=== PATIENT | male | born 1965 | race Caucasian/White ===

== ENCOUNTER 2017-10-11 06:18 | Emergency (ER) | payer OTHER ==
--- NOTE | 2017-10-11 07:51 | ER ---
Nurse's Notes [facility] Name: Pete Granger Age: 52 yrs Sex: Male : 1965 Arrival Date: 10/11/2017 Time: 06:18 Bed 15 Private MD: Werner No E Diagnosis: Strain of unspecified muscle and tendon at ankle and foot level, left foot;Fracture of fifth metatarsal bone Presentation: 10/11 06:26 Presenting complaint: Patient states: he woke up this morning with L foot pain. Denies aa1 injury. CMS intact. Transition of care: patient was not received from another setting of care. Onset of symptoms was October 11, 2017. Risk Assessment: Do you want to hurt yourself or someone else? Patient reports no desire to harm self or others. Initial Sepsis Screen: Does the patient meet any 2 criteria? No. Patient's initial sepsis screen is negative. Does the patient have a suspected source of infection? No. Patient's initial sepsis screen is negative. Care prior to arrival: None. 06:26 Method Of Arrival: Ambulatory aa1 06:26 Acuity: SHAHZAD 4 aa1 Historical: - Allergies: 06:27 No Known Allergies; aa1 - Home Meds: 06:27 None [Active]; aa1 - PMHx: 06:27 None; aa1 - PSHx: 06:27 Knee surgery; jaw sx; aa1 - Immunization history:: Adult Immunizations up to date. - Social history:: Smoking status: Patient uses tobacco products, denies chronic smoking, but will smoke occasionally. - Ebola Screening: : No symptoms or risks identified at this time. - Family history:: not pertinent. - Hospitalizations: : No recent hospitalization is reported. Screenin:28 Abuse screen: Denies threats or abuse. Denies injuries from another. Nutritional aa1 screening: No deficits noted. Tuberculosis screening: No symptoms or risk factors identified. Fall Risk None identified. Assessment: 06:28 General: Appears in no apparent distress. comfortable, Behavior is calm, cooperative, aa1 appropriate for age. Pain: Complains of pain in left foot Aggravated by weight bearing. Neuro: Level of Consciousness is awake, alert, obeys commands, Oriented to person, place, time, situation, Gait is steady. Respiratory: Airway is patent Respiratory effort is even, unlabored, Respiratory pattern is regular, symmetrical. GI: No signs and/or symptoms were reported involving the gastrointestinal system. : No signs and/or symptoms were reported regarding the genitourinary system. EENT: No signs and/or symptoms were reported regarding the EENT system. Derm: Skin is intact, is healthy with good turgor, Skin is pink, warm \T\ dry. Musculoskeletal: Circulation, motion, and sensation intact. Capillary refill < 3 seconds, Range of motion: intact in all extremities. Vital Signs: 06:27 BP 153 / 83; Pulse 74; Resp 16; Temp 97.9; Pulse Ox 98% on R/A; Weight 117.93 kg; aa1 Height 5 ft. 11 in. (180.34 cm); Pain 2/10; 06:27 Body Mass Index 36.26 (117.93 kg, 180.34 cm) aa1 ED Course: 06:18 Patient arrived in ED. ds1 06:18 Werner No MD is Private Physician. ds1 06:27 Triage completed. aa1 06:27 Arm band placed on right wrist. Patient placed in an exam room, on a stretcher. aa1 06:28 Patient has correct armband on for positive identification. Bed in low position. Call aa1 light in reach. Pulse ox on. NIBP on. 06:42 Pam Juan FNP is PHCP. kav 06:42 Arnaldo Garcia MD is Attending Physician. kav 07:03 X-ray completed. Portable x-ray completed in exam room. Patient tolerated procedure jb2 well. 07:03 Naif Stewart, RIC is Primary Nurse. hj 07:04 Foot Left 3 View XRAY: left outer outer distal aspect of left foot - no injury In EDMS Process Unspecified. 07:50 Werner No MD is Referral Physician. kav 07:55 No provider procedures requiring assistance completed. Patient did not have IV access hj during this emergency room visit. Administered Medications: No medications were administered Outcome: 07:50 Discharge ordered by . kav 07:55 Discharged to home ambulatory. hj 07:55 Condition: stable 07:55 Discharge instructions given to patient, Instructed on discharge instructions, follow up and referral plans. Demonstrated understanding of instructions, follow-up care. 07:55 Patient left the ED. hj Signatures: Dispatcher [employer] EDMS Soledad Hernandez, RIC RN aa1 Pam Juan, DISTRIBUTOR SALES CONSULTANT DISTRIBUTOR SALES CONSULTANT Jamie Ruggiero2 Jessica Garcia ds1 Naif Stewart, RN RN hj
--- NOTE | 2017-10-11 07:51 | EDPHYS ---
Physician Documentation [facility] Name: Pete Granger Age: 52 yrs Sex: Male : 1965 Arrival Date: 10/11/2017 Time: 06:18 Bed 15 Private MD: Werner No E ED Physician Arnaldo Garcia HPI: 10/11 06:42 This 52 yrs old Male presents to ER via Ambulatory with complaints of L Foot kav Pain. 06:48 The patient presents with pain, that is acute. The complaints affect the left foot, kav dorsum of left foot. Context: The problem was sustained at an unknown location. Onset: The symptoms/episode began/occurred acutely. Modifying factors: The symptoms are alleviated by nothing, the symptoms are aggravated by movement. Associated signs and symptoms: The patient has no apparent associated signs or symptoms. Severity of symptoms: At their worst the symptoms were mild, just prior to arrival, yesterday. The patient has not recently seen a physician. Patient [place] walking beach "...all day yesterday without any shoes on". Historical: - Allergies: 06:27 No Known Allergies; aa1 - Home Meds: 06:27 None [Active]; aa1 - PMHx: 06:27 None; aa1 - PSHx: 06:27 Knee surgery; jaw sx; aa1 - Immunization history:: Adult Immunizations up to date. - Social history:: Smoking status: Patient uses tobacco products, denies chronic smoking, but will smoke occasionally. - Ebola Screening: : No symptoms or risks identified at this time. - Family history:: not pertinent. - Hospitalizations: : No recent hospitalization is reported. ROS: 06:48 Constitutional: Negative for fever, chills, and weight loss, Eyes: Negative for injury, kav pain, redness, and discharge, ENT: Negative for injury, pain, and discharge, Neck: Negative for injury, pain, and swelling, Cardiovascular: Negative for chest pain, palpitations, and edema, Respiratory: Negative for shortness of breath, cough, wheezing, and pleuritic chest pain, Abdomen/GI: Negative for abdominal pain, nausea, vomiting, diarrhea, and constipation, Back: Negative for injury and pain, : Negative for injury, bleeding, discharge, and swelling, Skin: Negative for injury, rash, and discoloration, Neuro: Negative for headache, weakness, numbness, tingling, and seizure, Psych: Negative for depression, anxiety, suicide ideation, homicidal ideation, and hallucinations, Allergy/Immunology: Negative for hives, rash, and allergies, Endocrine: Negative for neck swelling, polydipsia, polyuria, polyphagia, and marked weight changes, Hematologic/Lymphatic: Negative for swollen nodes, abnormal bleeding, and unusual bruising. 06:48 MS/extremity: Positive for pain, of the lateral side of left foot and dorsum of left foot. Exam: 06:48 Constitutional: This is a well developed, well nourished patient who is awake, alert, kav and in no acute distress. Head/Face: Normocephalic, atraumatic. Eyes: Pupils equal round and reactive to light, extra-ocular motions intact. Lids and lashes normal. Conjunctiva and sclera are non-icteric and not injected. Cornea within normal limits. Periorbital areas with no swelling, redness, or edema. ENT: Nares patent. No nasal discharge, no septal abnormalities noted. Tympanic membranes are normal and external auditory canals are clear. Oropharynx with no redness, swelling, or masses, exudates, or evidence of obstruction, uvula midline. Mucous membranes moist. Neck: Trachea midline, no thyromegaly or masses palpated, and no cervical lymphadenopathy. Supple, full range of motion without nuchal rigidity, or vertebral point tenderness. No Meningismus. Chest/axilla: Normal chest wall appearance and motion. Nontender with no deformity. No lesions are appreciated. Cardiovascular: Regular rate and rhythm with a normal S1 and S2. No gallops, murmurs, or rubs. Normal PMI, no JVD. No pulse deficits. Respiratory: Lungs have equal breath sounds bilaterally, clear to auscultation and percussion. No rales, rhonchi or wheezes noted. No increased work of breathing, no retractions or nasal flaring. Abdomen/GI: Soft, non-tender, with normal bowel sounds. No distension or tympany. No guarding or rebound. No evidence of tenderness throughout. Back: No spinal tenderness. No costovertebral tenderness. Full range of motion. Skin: Warm, dry with normal turgor. Normal color with no rashes, no lesions, and no evidence of cellulitis. Neuro: Awake and alert, GCS 15, oriented to person, place, time, and situation. Cranial nerves II-XII grossly intact. Motor strength 5/5 in all extremities. Sensory grossly intact. Cerebellar exam normal. Normal gait. Psych: Awake, alert, with orientation to person, place and time. Behavior, mood, and affect are within normal limits. 06:48 Musculoskeletal/extremity: Extremities: noted in the lateral side of left foot and dorsum of left foot: ROM: no acute changes, Circulation is intact in all extremities. Pulses: noted to be 2+ in the left posterior tibial artery and left dorsalis pedis artery, Sensation intact. Compartment Syndrome exam of affected extremity: is normal. no pain, no numbness, no tingling, no sensation deficit, no palor, no weak pulses, Joints: the left ankle displays Weight bearing: able to fully bear weight, without difficulty. Vital Signs: 06:27 BP 153 / 83; Pulse 74; Resp 16; Temp 97.9; Pulse Ox 98% on R/A; Weight 117.93 kg; aa1 Height 5 ft. 11 in. (180.34 cm); Pain 2/10; 06:27 Body Mass Index 36.26 (117.93 kg, 180.34 cm) aa1 MDM: 06:42 Medical screening is not applicable. kav 10/11 06:47 Order name: Foot Left 3 View XRAY: left outer outer distal aspect of left foot - no kav injury 10/11 07:51 Interpretation: Abnormal. kav Administered Medications: No medications were administered Disposition: 10/11/17 07:50 Discharged to Home. Impression: Strain of unspecified muscle and tendon at ankle and foot level, left foot, Fracture of fifth metatarsal bone. - Condition is Stable. - Discharge Instructions: Metatarsal Fracture, Undisplaced, Repetitive Strain Injuries. - Medication Reconciliation Form, Thank You Letter, Antibiotic Education, Prescription Opioid Use form. - Follow up: Werner No; When: 5 - 6 days; Reason: Recheck today's complaints, Continuance of care, Re-evaluation by your physician. - Problem is new. - Symptoms have improved. - Notes: patient refused splinting and ortho shoe advised to wear a supportive shoe for the next 2 weeks and avoid flip-flops otc motrin as directed and as needed Addendum: 10/13/2017 07:00 Co-signature as Attending Physician, Arnaldo Garcia MD. r n Signatures: Dispatcher [employer] EDMS Soledad Hernandez RN RN aa1 Pam Juan, ELECTRICAL CONTACTS ADJUSTER ELECTRICAL CONTACTS ADJUSTER Arnaldo Wallace MD MD rn Joaquin, Henry, RN RN hj Corrections: (The following items were deleted from the chart) 10/11 07:55 07:50 10/11/2017 07:50 Discharged to Home. Impression: Strain of unspecified muscle and hj tendon at ankle and foot level, left foot; Fracture of fifth metatarsal bone. Condition is Stable. Discharge Instructions: Repetitive Strain Injuries, Metatarsal Fracture, Undisplaced. Forms are Medication Reconciliation Form, Thank You Letter, Antibiotic Education, Prescription Opioid Use. Follow up: Werner No; When: 5 - 6 days; Reason: Recheck today's complaints, Continuance of care, Re-evaluation by your physician. Problem is new. Symptoms have improved. kav
--- NOTE | 2017-10-11 08:32 | RAD REPORT ---
EXAM DESCRIPTION: RAD - Foot Left 3 View - 10/11/2017 7:03 am CLINICAL HISTORY: Left Foot pain FINDINGS: No fracture or dislocation is seen. Large calcaneal spur is present. Soft tissue swelling involves the lateralized
== END 2017-10-11 07:55 | disposition home or self-care (01) ==
LOC: ER 06:18
DX: S92.352A Displaced fracture of fifth metatarsal bone, left foot, initial encounter for closed fracture (principal); S96.912A Strain of unspecified muscle and tendon at ankle and foot level, left foot, initial encounter; F17.200 Nicotine dependence, unspecified, uncomplicated; Y93.01 Activity, walking, marching and hiking; Y93.89 Activity, other specified; Y92.832 Beach as the place of occurrence of the external cause; Y99.8 Other external cause status
CPT/HCPCS: 99283

== ENCOUNTER 2020-08-28 16:35 | Emergency (ER) | payer OTHER ==
[2020-08-28] MEDS ORDERED: KETOROLAC 30 MG/ML INJ ONE (17:38)
--- NOTE | 2020-08-28 17:56 | RAD REPORT ---
EXAM DESCRIPTION: CT - Pelvis Wo Cont - 08/28/2020 5:28 pm CLINICAL HISTORY: Pelvic pain. Left hip radiculopathy COMPARISON: None. TECHNIQUE: Computed axial tomography of the pelvis was obtained. Coronal and sagittal reconstruction performed All CT scans are performed using dose optimization technique as appropriate and may include automated exposure control or mA/KV adjustment according to patient size. FINDINGS: No fracture or dislocation. A significant left hip joint effusion is not present. 25 millimeter fluid collection abuts superolateral aspect the left acetabulum. It equivocally contain s an air bubble Moderate osteoarthritis involves left consisting of joint space narrowing, osteophytes vacuum phenome na. Subchondral cyst is also seen. The prostate gland is mildly enlarged. Marked narrowing involves the L5-S1 disc. Slight posterior subluxation L5 on S1. Osteophytes and vacu um phenomena are present. IMPRESSION: Mild to moderate osteoarthritis left hip 25 millimeter fluid collection abuts superolateral aspect the left acetabulum. It equivocally contain s an air bubble. This may indicate an infected bursitis and should be correlated clinically
[2020-08-28 19:16] LABS: Absolute Lymphocytes (CBC) 2.8 K/uL (0.7-4.9); Basophils % 0.6 % (0-1.3); Hematocrit 40.5 % (39.6-49.0); Lymphocytes % 33.1 % (15.3-44.8); MPV 8.6 fL (7.6-11.3); RBC Red Blood Cell Count 4.49 M/uL (4.33-5.43)
[2020-08-28 19:25] LABS: BUN Blood Urea Nitrogen 16 mg/dL (7-18); Bicarbonate 26 mmol/L (21-32); C-Reactive Protein 3.46 mg/L (<3.00); Glucose Level 106 mg/dL (74-106); Potassium 3.6 mmol/L (3.5-5.1); Sodium Level 139 mmol/L (136-145)
--- NOTE | 2020-08-28 20:27 | ER ---
Nurse's Notes [facility] Name: Tex Granger Age: 55 yrs Sex: Male : 1965 Arrival Date: 08/28/2020 Time: 16:36 Bed 15 Private MD: Werner No E Diagnosis: Pain in left hip Presentation: 08/28 16:40 Chief complaint: Patient states: "we are in the process of building a house and through jd3 all the doings of today I am having pain deep in my left hip that comes down to my left knee.". Coronavirus screen: At this time, the client does not indicate any symptoms associated with coronavirus-19. Ebola Screen: Patient negative for fever greater than or equal to 101.5 degrees Fahrenheit, and additional compatible Ebola Virus Disease symptoms. Initial Sepsis Screen: Does the patient meet any 2 criteria? No. Patient's initial sepsis screen is negative. Does the patient have a suspected source of infection? No. Patient's initial sepsis screen is negative. Risk Assessment: Do you want to hurt yourself or someone else? Patient reports no desire to harm self or others. Onset of symptoms was August 28, 2020. 16:40 Method Of Arrival: Ambulatory jd3 16:40 Acuity: SHAHZAD 3 jd3 Historical: - Allergies: 16:42 No Known Allergies; jd3 - Home Meds: 16:42 None [Active]; jd3 - PMHx: 16:42 None; jd3 - PSHx: 16:42 Knee surgery; jaw sx; jd3 - Immunization history:: Adult Immunizations up to date. - Social history:: Smoking status: Patient reports the use of cigarette tobacco products, denies chronic smoking, but will smoke occasionally. Screenin:11 Abuse screen: Denies threats or abuse. Denies injuries from another. Nutritional ca1 screening: No deficits noted. Tuberculosis screening: No symptoms or risk factors identified. Fall Risk None identified. Assessment: 17:11 General: Appears in no apparent distress. comfortable, Behavior is calm, cooperative, ca1 appropriate for age. Pain: Complains of pain in left femoral area and left inguinal area Pain radiates to left leg Pain currently is 8 out of 10 on a pain scale. Pain began 2-3 days ago. Aggravated by weight bearing. Neuro: Level of Consciousness is awake, alert, obeys commands, Oriented to person, place, time, situation. Derm: Skin is intact, is healthy with good turgor, Skin is pink, warm \\T\\ dry. Musculoskeletal: Circulation, motion, and sensation intact. Capillary refill < 3 seconds. 18:00 Reassessment: Patient appears in no apparent distress at this time. Patient and/or ca1 family updated on plan of care and expected duration. Pain level reassessed. Patient is alert, oriented x 3, equal unlabored respirations, skin warm/dry/pink. 19:02 Reassessment: Patient appears in no apparent distress at this time. Patient and/or ca1 family updated on plan of care and expected duration. Pain level reassessed. Patient is alert, oriented x 3, equal unlabored respirations, skin warm/dry/pink. 19:20 Reassessment: Patient and/or family updated on plan of care and expected duration. Pain cr4 level reassessed. Patient is alert, oriented x 3, equal unlabored respirations, skin warm/dry/pink. Patient states feeling better. Vital Signs: 16:42 BP 147 / 84; Pulse 88; Resp 17 S; Temp 97.9(TE); Pulse Ox 100% on R/A; Weight 117.93 kg jd3 (R); Height 5 ft. 11 in. (180.34 cm) (R); Pain 8/10; 19:02 BP 134 / 76; Pulse 81; Resp 16 S; Pulse Ox 100% on R/A; ca1 20:30 BP 135 / 63; Pulse 55; Resp 18; Temp 98.6; Pulse Ox 99% ; Pain 3/10; cr4 16:42 Body Mass Index 36.26 (117.93 kg, 180.34 cm) jd3 ED Course: 16:36 Patient arrived in ED. am2 16:36 Werner No MD is Private Physician. am2 16:41 Triage completed. jd3 16:43 Arm band placed on. jd3 17:01 [facility]C [facility] kb 17:01 Jona Mathews MD is Attending Physician. kb 17:11 Lucia Larson, RIC is Primary Nurse. ca1 17:11 Patient has correct armband on for positive identification. Bed in low position. Call ca1 light in reach. Side rails up X 1. Pulse ox on. NIBP on. 17:28 CT Pelvis wo Cont In Process Unspecified. EDMS 19:00 Initial lab(s) drawn, by me, sent to lab. Inserted saline lock: 20 gauge in right ca1 antecubital area, using aseptic technique. Blood collected. 19:20 No provider procedures requiring assistance completed. cr4 20:27 Dung Anderson MD is Referral Physician. kb 20:49 IV discontinued, intact, bleeding controlled. cr4 Administered Medications: 17:22 Drug: TORadol (ketorolac) 60 mg Route: IM; Site: left gluteus; ca1 18:00 Follow up: Response: No adverse reaction; Pain is decreased ca1 20:48 Follow up: Response: No adverse reaction; Pain is decreased cr4 Outcome: 20:27 Discharge ordered by . kb 20:49 Discharged to home ambulatory. cr4 20:49 Condition: good 20:49 Discharge instructions given to patient, Instructed on discharge instructions, follow up and referral plans. medication usage, Demonstrated understanding of instructions, follow-up care, medications, Prescriptions given X 2. 20:52 Patient left the ED. cr4 Signatures: Dispatcher [employer] EDPR Meri Garza, ALARM FIELD TECHNICIAN-C ALARM FIELD TECHNICIAN-Judit Pillai, RN RN cr4 Trina Huff am2 Tip Sorto RN RN jd3 Lucia Larson RN RN ca1 Corrections: (The following items were deleted from the chart) 16:43 16:42 Pulse 88bpm; Resp 17bpm; Spontaneous; Pulse Ox 100% RA; Temp 97.9F Temporal; jd3 117.93 kg Reported; Height 5 ft. 11 in. Reported; BMI: 36.2; Pain 8/10; jd3 18:54 16:40 Acuity: SHAHZAD 4 jd3 jd3
--- NOTE | 2020-08-28 20:27 | EDPHYS ---
Physician Documentation [facility] Name: Tex Granger Age: 55 yrs Sex: Male : 1965 Arrival Date: 08/28/2020 Time: 16:36 Bed 15 Private MD: Werner No E ED Physician Jona Mathews HPI: 08/28 21:58 This 55 yrs old Male presents to ER via Ambulatory with complaints of Hip kb Pain, Knee Pain. 21:58 The patient or guardian reports pain. that occurred at home, sustained from unknown kb reason, There is no obvious deformity, The patient is able to self ambulate. The patient is able to bear their full body weight. There is no radiation of the patient's discomfort. The complaints affect the left inguinal area and left femoral area. Onset: The symptoms/episode began/occurred today. Modifying factors: The symptoms are alleviated by nothing, the symptoms are aggravated by any movement. Associated signs and symptoms: Loss of consciousness: the patient experienced no loss of consciousness, Pertinent positives: None. Severity of symptoms: At their worst the symptoms were moderate, in the emergency department the symptoms are unchanged. The patient has not experienced similar symptoms in the past. The patient has not recently seen a physician. Pt reports "deep pain" in left hip that started today. States he has been rebuilding a house, climbing from the ground through the floor multiple times. Denies any injury or trauma. Historical: - Allergies: 16:42 No Known Allergies; jd3 - Home Meds: 16:42 None [Active]; jd3 - PMHx: 16:42 None; jd3 - PSHx: 16:42 Knee surgery; jaw sx; jd3 - Immunization history:: Adult Immunizations up to date. - Social history:: Smoking status: Patient reports the use of cigarette tobacco products, denies chronic smoking, but will smoke occasionally. ROS: 21:55 Constitutional: Negative for fever, chills, and weight loss, Back: Negative for injury kb and pain, : Negative for injury, bleeding, discharge, and swelling. 21:55 MS/extremity: Positive for pain, of the left inguinal area and left femoral area. 21:55 All other systems are negative. Exam: 21:57 Constitutional: This is a well developed, well nourished patient who is awake, alert, kb and in no acute distress. Head/Face: Normocephalic, atraumatic. ENT: Moist Mucous membranes Respiratory: Respirations even and unlabored. No increased work of breathing, no retractions or nasal flaring. Abdomen/GI: Soft, non-tender. No distention Back: No spinal tenderness. No costovertebral tenderness. Full range of motion. Skin: Warm, dry with normal turgor. Normal color. Neuro: Awake and alert, GCS 15, oriented to person, place, time, and situation. Moves all extremities. Normal gait. Psych: Awake, alert, with orientation to person, place and time. Behavior, mood, and affect are within normal limits. 21:57 Musculoskeletal/extremity: Extremities: grossly normal except: noted in the left inguinal area and left femoral area: pain, ROM: limited active range of motion due to pain, Circulation is intact in all extremities. Sensation intact. Weight bearing: able to fully bear weight. Vital Signs: 16:42 BP 147 / 84; Pulse 88; Resp 17 S; Temp 97.9(TE); Pulse Ox 100% on R/A; Weight 117.93 kg jd3 (R); Height 5 ft. 11 in. (180.34 cm) (R); Pain 8/10; 19:02 BP 134 / 76; Pulse 81; Resp 16 S; Pulse Ox 100% on R/A; ca1 20:30 BP 135 / 63; Pulse 55; Resp 18; Temp 98.6; Pulse Ox 99% ; Pain 3/10; cr4 16:42 Body Mass Index 36.26 (117.93 kg, 180.34 cm) jd3 MDM: 17:01 Patient medically screened. kb 18:05 Physician consultation: Dung Anderson MD was contacted at 18:05, regarding consult, patient's condition. 19:44 Data reviewed: vital signs, nurses notes. Data interpreted: Pulse oximetry: on room air kb is 100 %. Interpretation: normal. Counseling: I had a detailed discussion with the patient and/or guardian regarding: the historical points, exam findings, and any diagnostic results supporting the discharge/admit diagnosis, lab results, radiology results, the need for outpatient follow up, a orthopedic surgeon, to return to the emergency department if symptoms worsen or persist or if there are any questions or concerns that arise at home. ED course: Dr Anderson recommended cbc, basic and sed rate. If normal pt can follow up with him in office. . 08/28 18:32 Order name: CBC with Diff; Complete Time: 20:26 kb 08/28 18:32 Order name: Basic Metabolic Panel; Complete Time: 19:27 kb 08/28 17:16 Order name: CT Pelvis wo Cont; Complete Time: 17:59 kb 08/28 18:32 Order name: Sed Rate; Complete Time: 20:26 kb 08/28 18:32 Order name: CRP; Complete Time: 19:27 kb Administered Medications: 17:22 Drug: TORadol (ketorolac) 60 mg Route: IM; Site: left gluteus; ca1 18:00 Follow up: Response: No adverse reaction; Pain is decreased ca1 20:48 Follow up: Response: No adverse reaction; Pain is decreased cr4 Disposition: 08/29 07:52 Co-signature as Attending Physician, Jona Mathews MD I agree with the assessment and malini plan of care. Disposition: 08/28/20 20:27 Discharged to Home. Impression: Pain in left hip. - Condition is Stable. - Discharge Instructions: Hip Pain, Hip Bursitis, [id number], Arthritis, [id number]. - Prescriptions for Cyclobenzaprine 10 mg Oral Tablet - take 1 tablet by ORAL route every 8 hours As needed; 30 tablet. Diclofenac Sodium 75 mg Oral Tablet, Delayed Release (E.C.) - take 1 tablet by ORAL route 2 times per day As needed; 30 tablet. - Medication Reconciliation Form, Thank You Letter, Antibiotic Education, Prescription Opioid Use form. - Follow up: Emergency Department; When: As needed; Reason: Worsening of condition. Follow up: Private Physician; When: 2 - 3 days; Reason: Recheck today's complaints, Continuance of care, Re-evaluation by your physician. Follow up: Dung Anderson MD; When: 2 - 3 days; Reason: Recheck today's complaints. Signatures: Dispatcher [employer] EDMS Meri Garza, HEADING SAW OPERATOR-C HEADING SAW OPERATOR-Jona Palomares MD MD cha Ruiz, Claudia, RN RN cr4 Tip Sorto RN RN jd3 Lucia Larson RN RN ca1 Corrections: (The following items were deleted from the chart) 08/28 20:27 20:27 08/28/2020 20:27 Discharged to Home. Impression: Pain in left hip. Condition is kb Stable. Forms are Medication Reconciliation Form, Thank You Letter, Antibiotic Education, Prescription Opioid Use. Follow up: Emergency Department; When: As needed; Reason: Worsening of condition. Follow up: Private Physician; When: 2 - 3 days; Reason: Recheck today's complaints, Continuance of care, Re-evaluation by your physician. kb 20:52 20:27 08/28/2020 20:27 Discharged to Home. Impression: Pain in left hip. Condition is cr4 Stable. Discharge Instructions: Hip Pain, Arthritis, [id number]. Prescriptions for Cyclobenzaprine 10 mg Oral Tablet - take 1 tablet by ORAL route every 8 hours As needed; 30 tablet, Diclofenac Sodium 75 mg Oral Tablet, Delayed Release (E.C.) - take 1 tablet by ORAL route 2 times per day As needed; 30 tablet. and Forms are Medication Reconciliation Form, Thank You Letter, Antibiotic Education, Prescription Opioid Use. Follow up: Emergency Department; When: As needed; Reason: Worsening of condition. Follow up: Private Physician; When: 2 - 3 days; Reason: Recheck today's complaints, Continuance of care, Re-evaluation by your physician. Follow up: Dr. Dung Anderson; When: 2 - 3 days; Reason: Recheck today's complaints. kb
[2020-08-28 21:16] VITALS: BP 135/63; TEMP 98.6; O2SAT 99
== END 2020-08-28 20:52 | disposition home or self-care (01) ==
LOC: ER 16:35
DX: M25.552 Pain in left hip (principal); F17.210 Nicotine dependence, cigarettes, uncomplicated
CPT/HCPCS: 36415; 72192; 80048; 85025; 85652; 86140; 96372; 99284